=== PATIENT | male | born 1965 | race Caucasian/White ===

== ENCOUNTER 2017-03-15 16:44 | Emergency (ER) | payer MEDICAID ==
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
== END 2017-03-15 17:35 | disposition home or self-care (01) ==
LOC: ER 16:44
DX: G89.29 Other chronic pain (principal); M54.6 Pain in thoracic spine; M54.5 Low back pain; M48.00 Spinal stenosis, site unspecified